=== PATIENT | female | born 1965 | race Caucasian/White ===

== ENCOUNTER → 2022-07-14 | Outpatient (CLI) | payer BC, SELFPAY ==
--- NOTE | 2022-07-14 | FLU_PTH ---
PATIENT: HLIARIO FARIAS LOC: [facility] U#:[id number] AGE/SX: 57/F ROOM: RE07/14/[address]: Dr. Apurva Coulter MD : 1965 BED: DIS: 07/14/2022 SPEC #: [id number] RECD: 07/14/22 12:19 STATUS: ELISA RACHEL #: [id number] DANIEL: 07/14/22 00:[address]: Apurva Coulter DEPT: CYTOLOGY RECD BY: Alvaro Contreras ENTERED: 07/14/22 12:20 SP TYPE: Fluid OTHR DR: Dr. John Marks MD Tissues: A - Thyroid gland, NOS B - Thyroid gland, NOS Procedures: Special Stain Group II Surgery Specimen Level IV Cytospin Fluid HEADER OPERATION: Fine needle aspiration right thyroid PRE-OP DIAGNOSIS: Abnormal thyroid ultrasound TISSUE SUBMITTED: A ? Right thyroid nodule fluid, B ? Right thyroid nodule x6 slides DIAGNOSIS CYTOLOGY A. Fine needle aspiration, right thyroid nodule (cytospin and cell block): Consistent with benign follicular nodule ([place] Category II). See comment. B. Fine needle aspiration right thyroid nodule (smears). Negative for malignant cells. See comment. AM:rufino 07/15/2022 COMMENT A. The specimen contains blood and mixed chronic inflammatory cells. Follicular cells are not present. The specimen is adequate for evaluation. Clinical correlation is suggested. The [place] System for thyroid diagnostic categorization was used in the evaluation of this case. B. The specimen contains only very rare follicular cells. Clinical correlation is suggested. CYTOLOGY STUDY Slides are reviewed. CYTOLOGY GROSS A - Received is 30 ml of red cloudy fluid labeled with the patient's name and and designated per the requisition as right thyroid. Submitted for cytology preparation including cell block. B - Received are six smears labeled with the patient's name and designated per the requisition as right thyroid. Submitted for staining. / rufino 07/14/2022 TC:5 CPT: 10764 x2, 34983
== END | disposition home or self-care (01) ==
LOC: LAB 13:05 → LABSPEC 07-17 14:56
PROVIDERS: PCP Family Medicine; Referring Provider Surgery; Visit Provider Surgery
DX: R93.89 Abnormal findings on diagnostic imaging of other specified body structures (principal)
CPT/HCPCS: 88108; 88305; 88313